=== PATIENT | female | born 1960 | race Caucasian/White ===

== ENCOUNTER → 2017-02-05 | Outpatient (CLI) | payer OTHER ==
[~2017-02-05] MED LIST: ABILIFY5 MG PO; ACETAMINOPHEN PO; ACETAMINOPHEN1 EAC1 PO; ACYCLOVIR200 MG PO; ADDERALL XR 3030 M2 PO; ADDERALLXR PO; ALDACTONE25 MG PO; ARICEPT PO; ASPIR-TRIN325 MG PO; ASPIRIN ENTERI325 M1 PO; ATIVAN0.5 MG PO; B COMPLEX1 TAB PO; B6100 MG PO; BAYER ASPIRIN325 M1 PO; BUMEX2 MG PO; CALCIUM + D 6001 TA1 PO; CALCIUM1 TAB.CHEW PO; CALCIUM500 MG PO; CARVEDILOL12.5 MG PO; CARVEDILOL25 MG PO; CELEBREX PO; CLARITHROMYCIN500 MG; CLARITIN10 M2 PO; COATED ASPIRIN325 M1 PO; COREG3.125 MG PO; COZAAR25 MG PO; CYMBALTA PO; CYMBALTA30 MG PO; EFFIENT10 MG PO; ERY-TAB333 M1 PO; FISH OIL300 MG PO; IMDUR-ER30 M1 PO; IMDUR-ER60 MG PO; K-DUR20 ME1 PO; LANTUS100 U/M1 SQ; LANTUS100 U/ML SUBQ; LASIX PO; LASIX20 MG PO; LEVOTHROID50 MCG PO; LEVOTHYROXINE50 MCG PO; LEXAPRO20 MG PO; MELATONIN10 M2 PO; METANX CAPSULE1 EACH PO; METANX TABLET1 TA1 PO; METOCLOPRAMIDE H5 MG PO; MIRALAX17 GM PO; MULTIPLE VITAMI1 T11 PO; MULTIVITAMIN PO; MULTIVITAMIN1 UDCAP PO; NAMENDA XR21 MG PO; NAMENDA XR28 MG PO; NEXIUM PO; NOVOLOG100 U/M1 SQ; NOVOLOG100 U/M2 SQ; NOVOLOG100 U/ML; OXYGEN; PANTOPRAZOLE SO40 MG PO; PERCOCET 7.5/321 TAB PO; PLAVIX PO; PRAVACHOL20 MG PO; REGLAN10 MG PO; SEROQUEL PO; SILVADENE TOP; SINGULAIR PO; SYNTHROID25 MCG PO; TYLENOL PO; TYLENOL325 M1 PO; VASOTEC2.5 MG PO; VITAMIN D2000 UNIT PO; VOLTAREN100 GM TP; VYTORIN 10-40 M1 TAB PO; VYTORIN 10-40 T1 TAB PO; ZETIA PO; ZINC CHELATED50 M1 PO; ZINC PICOLINATE PO; ZOVIRAX200 MG PO
[2017-02-05 11:39] LABS: BASOPHIL# 0.1 X10e3 (0-0.3); BASOPHIL% 0.9 % (0-2.5); EOSINOPHIL% 0.4 % (0.0-7.0); HEMATOCRIT 42.4 % (35.0-45.0); HEMOGLOBIN 13.8 gm/dL (12.0-16.0); LYMPHOCYTE# 1.5 X10e3 (1.0-3.5); LYMPHOCYTE% 14.5 % (17.0-45.0); MEAN CELL VOLUME 96.8 FL (83-96); MEAN CORPUSCULAR HEMOGLOBIN 31.4 PG (28-34); MEAN CORPUSCULAR HGB CONC 32.4 g/dL (30-36); MEAN PLATELET VOLUME 9.2 FL (6.5-11.5); MONOCYTE# 0.3 X10e3 (0-1.0); MONOCYTE% 3.3 % (3.0-12.0); NEUTROPHIL# 8.5 X10e3 (1.5-7.1); NEUTROPHIL% 80.9 % (40-75); PLATELET COUNT 257 X10e3 (140-420); RED BLOOD COUNT 4.38 X10e (3.90-5.30); RED CELL DISTRIBUTION WIDTH 13.2 % (11.0-15.5); WHITE BLOOD COUNT 10.5 X10e3 (4.0-10.5)
[2017-02-05 11:46] LABS: DIFF IND NO; URINE APPEARANCE CLEAR; URINE BILIRUBIN NEG (NEG); URINE BLOOD TRACE (NEG); URINE COLOR YELLOW; URINE GLUCOSE >1000 MG/DL (NEG); URINE KETONE 1+ (NEG); URINE LEUKOCYTE ESTERASE 1+ (NEG); URINE NITRATE NEG (NEG); URINE PH 6.5 (5-8); URINE PROTEIN NEG (NEG); URINE SPECIFIC GRAVITY 1.028 (1.003-1.035)
[2017-02-05 11:47] LABS: URINE BACTERIA AUWI NEG (NEGATIVE); URINE SQUAMOUS EPITHELIAL CELL OCC /[HPF]
[2017-02-05 11:53] LABS: URINE SOURCE CLEAN CATCH
[2017-02-05 12:21] LABS: CREATININE,RANDOM URINE 133 mg/dL; TOTAL PROTEIN,RANDOM URINE 16 mg/dl (<10)
[2017-02-05 12:32] LABS: ALBUMIN SERUM 3.8 g/dL (3.5-5.0); BILIRUBIN,TOTAL 0.8 mg/dL (0.2-2.0); CALCIUM SERUM 9.6 mg/dL (8.4-10.2); CREATININE SERUM 1.3 mg/dL (0.6-1.4); GLOM FILT RATE Estimated 45.8 mL/min (>60); POTASSIUM 5.2 mmol/L (3.5-5.1); PROTEIN TOTAL SERUM 6.6 g/dL (6.0-8.3)
== END | disposition home or self-care (01) ==
LOC: CLAB 10:56
PROVIDERS: Internal Medicine Nephrology
DX: N18.3 Chronic kidney disease, stage 3 (moderate) (principal)
CPT/HCPCS: 36415; 80053; 81003; 82570; 84156; 85025

== ENCOUNTER 2017-03-04 22:34 | Emergency (ER) | payer OTHER ==
--- NOTE | ~2017-03-04 | EKG ---
PATIENT: VONDA ROBLEDO UNIT #: [id number] Ventricular Rate: 90 BPM Atrial Rate: 90 BPM P-R Interval: 138 ms QRS Duration: 108 ms Q-T Interval: 422 ms QTC Calculation(Bezet): 516 ms P [place]: 43 degrees Calculated R [place]: 46 degrees Calculated T [place]: 96 degrees Diagnosis Line: Normal sinus rhythm Diagnosis Line: Low voltage QRS Diagnosis Line: Septal infarct (cited on or before 04-MAR-2017) Diagnosis Line: Abnormal ECG Diagnosis Line: When compared with ECG of 18-OCT-2016 19:11, Diagnosis Line: Premature supraventricular complexes are no longer Diagnosis Line: Present Diagnosis Line: QT has lengthened Diagnosis Line: Confirmed by JEFF DAMON MD ([id number]) on Diagnosis Line: 03/06/2017 4:02:01 PM INTERPRETING MD: NELSON PERAZA
--- NOTE | ~2017-03-04 | CR72 ---
[facility] A Service of [facility] RADIOLOGY TEXT RESULTS PATIENT: VONDA ROBLEDO LOCATION: [facility] : 60 UNIT #: [id number] AGE: [address]: Darnell Haile MD SEX: F ORDER DR: [id number] [facility] [address] [place], [place] [address] [id number] E MR#: [id number] #: [id number] NAME: VONDA ROBLEDO : 1960 SEX: F STUDY DATE/TIME: 03/05/2017 0:20 UNIT: [facility] ROOM: STUDY DESCRIPTION: CR Chest Single View Portable Attending Physician: Darnell Haile M.D. Ordering Physician: Ed Doctor [id number] [facility] Primary Care Physician: Johanny Rodríguez M.D. MEDICAL IMAGING REPORT This report is preliminary unless electronic signature is present EXAM Portable chest INDICATION Chest pain, shortness of air for 2 days. COMPARISON 10/19/2016. FINDINGS A portable view of the chest was obtained. The heart size and vascularity are normal. The lungs are clear. The bones are unremarkable. A dual-lead pacemaker is present. IMPRESSION No active disease. Dictated by... Donovan Angeles M.D. THIS IS AN ELECTRONICALLY VERIFIED REPORT Donovan Angeles M.D. at 03/05/2017 1:35 PM JOSE JUAN/marlyn TD: 03/05/2017 12:54 JOB #: [id number] MEDICAL IMAGING REPORT Page 1 of 1 COPY
[~2017-03-04 22:34] MED LIST changes: -ACETAMINOPHEN1 EAC1 PO; -CLARITHROMYCIN500 MG; -MELATONIN10 M2 PO; -OXYGEN; -SILVADENE TOP
[2017-03-05 01:29] LABS: BASOPHIL# 0.1 X10e3 (0-0.3); BASOPHIL% 0.5 % (0-2.5); DIFF IND YES; EOSINOPHIL% 0.4 % (0.0-7.0); HEMATOCRIT 43.4 % (35.0-45.0); HEMOGLOBIN 13.8 gm/dL (12.0-16.0); LYMPHOCYTE# 5.3 X10e3 (1.0-3.5); LYMPHOCYTE% 47.1 % (17.0-45.0); MEAN CELL VOLUME 98.1 FL (83-96); MEAN CORPUSCULAR HEMOGLOBIN 31.3 PG (28-34); MEAN CORPUSCULAR HGB CONC 31.9 g/dL (30-36); MEAN PLATELET VOLUME 9.2 FL (6.5-11.5); MONOCYTE# 0.6 X10e3 (0-1.0); MONOCYTE% 5.2 % (3.0-12.0); NEUTROPHIL# 5.3 X10e3 (1.5-7.1); NEUTROPHIL% 46.8 % (40-75); PLATELET COUNT 250 X10e3 (140-420); RED BLOOD COUNT 4.42 X10e (3.90-5.30); WHITE BLOOD COUNT 11.3 X10e3 (4.0-10.5)
[2017-03-05 01:38] LABS: POC - CKMB 3.4 ng/mL (0.0-7.9); POC - TROPONIN <0.05 ng/mL (<=0.05)
[2017-03-05 01:46] LABS: ALBUMIN SERUM 3.9 g/dL (3.5-5.0); BILIRUBIN, DIRECT 0.1 mg/dL (0.0-0.2); BILIRUBIN,INDIRECT 0.5 mg/dL (0.0-0.9); BILIRUBIN,TOTAL 0.6 mg/dL (0.2-2.0); BUN/CREATININE RATIO 11.66; CALCIUM SERUM 9.4 mg/dL (8.4-10.2); CREATININE SERUM 1.2 mg/dL (0.6-1.4); GLOM FILT RATE Estimated 50.5 mL/min (>60); PROTEIN TOTAL SERUM 7.3 g/dL (6.0-8.3)
[2017-03-05 02:35] LABS: POC - CKMB 2.2 ng/mL (0.0-7.9); POC - TROPONIN <0.05 ng/mL (<=0.05)
[2017-03-05 02:46] LABS: PLATELET ESTIMATE NORMAL (NORMAL); RBC NORMAL YES
== END 2017-03-05 03:21 | disposition home or self-care (01) ==
LOC: CED 22:34
PROVIDERS: Emergency Medicine
DX: F41.9 Anxiety disorder, unspecified (principal); Z71.1 Person with feared health complaint in whom no diagnosis is made; E11.9 Type 2 diabetes mellitus without complications; Z86.73 Personal history of transient ischemic attack (TIA), and cerebral infarction without residual deficits; Z98.890 Other specified postprocedural states; Z95.0 Presence of cardiac pacemaker; Z88.8 Allergy status to other drugs, medicaments and biological substances; Z79.899 Other long term (current) drug therapy; Z79.4 Long term (current) use of insulin; Z79.82 Long term (current) use of aspirin
CPT/HCPCS: 36415; 71010; 80048; 80076; 82553; 84484; 85025; 93005; 99285

== ENCOUNTER 2017-05-05 15:49 | Inpatient (IN) | payer OTHER ==
[~2017-05-05] VITALS: Ht 157.5 cm; Wt 52.0 kg
--- NOTE | ~2017-05-05 | DS ---
Unit #: [id number] #: [id number] Patient: VONDA ROBLEDO [id number] [address] [address] [id number] I MR#: [id number] NAME: VONDA ROBLEDO ROOM: 327 Age: 57 Sex: F Admission Date: 05/05/2017 : 1960 Discharge Date: 05/09/2017 Attending Physician: Adelina Cross M.D. Primary Care Physician: Johanny Rodríguez M.D. DISCHARGE SUMMARY ADMISSION DIAGNOSES 1. Left upper extremity, mainly hand, swelling. 2. Rhabdomyolysis. 3. Acute kidney injury of chronic kidney disease. 4. Hyperglycemia. 5. Congestive heart failure. 6. History of coronary artery disease. 7. Hypertension. 8. Dyslipidemia. 9. Obstructive sleep apnea. 10. History of vascular dementia and blindness. 11. Hypothyroidism. DISCHARGE DIAGNOSES Same. CONSULTS DURING THIS HOSPITAL STAY 1. Orthopedic Surgery - Dr. Maher. 2. Dr. Brooks - Nephrology. LABS, DIAGNOSTICS AND PROCEDURES DURING THIS HOSPITAL STAY Hand x-ray on admission - no displaced fractures. No indication from traumatic joint malalignment. Soft tissue swelling. There is no soft tissue defect, subcutaneous air or radiodense foreign body. Forearm x-ray unremarkable. CT of the head without contrast - advanced chronic microvascular disease changes with chronic moderate central lobe infarct. No acute findings or significant change compared to September 2016 exam. HISTORY OF PRESENT HOSPITAL STAY Please refer to H and P done by my colleague, Dr. Cross, for initial presentation on this female. ACTIVE PROBLEMS AND DIAGNOSES 1. Acute kidney injury on chronic kidney disease most likely secondary to rhabdomyolysis. Nephrotoxic meds have been held, status post evaluation per Dr. Brooks. She was hydrated. Her CK level started trending down on admission. It was 3500. Again, it progressively had been trending down. Last one on May 09 is 1600. Patient is status post again evaluation by nephrology and from nephrology standpoint she can be discharged home with outpatient followup. 2. Rhabdomyolysis as above. Unit #: [id number] #: [id number] Patient: VONDA ROBLEDO 3. Left upper extremity/left hand swelling, status post evaluation per orthopedic surgery who initially discussed the case with the hand surgery from [facility]. Compartment syndrome has been ruled out. She had superficial blisters which was treated with Silvadene. Continue daily dressing with Silvadene at home. Patient is being followed by extended home nursing care. 4. History of coronary artery disease, continue home medications. 5. History of CHF. Holding diuretics per nephrology recommendations for now. Could be gradually introduced by primary care with monitoring of her renal function. 6. History of vascular dementia. Continue home medications. 7. History of hypertension. Holding Cozaar for now. 8. History of dyslipidemia, continue Pravachol. 9. History of diabetes. Continue home insulin regimen with sliding scale and Lantus. 10. History of hypothyroidism, continue levothyroxine. DISCHARGE MEDICATIONS 1. Tylenol p.r.n. 2. Cymbalta 90 mg daily. 3. Claritin 10 mg daily. 4. Abilify 5 mg q. a.m. 5. Ativan 0.5 mg t.i.d. p.r.n. for agitation. 6. Coreg 3.125 mg b.i.d. 7. MiraLAX 17 g p.o. daily. 8. Namenda 28 mg daily. 9. Aricept 10 mg daily. 10. Home O2. 11. Pravachol 20 mg p.o. q. h.s. 12. Sliding scale insulin. 13. Lantus 25 units subcu daily. 14. Silver sulfadiazine topically b.i.d. 15. Melatonin 10 mg at bedtime. 16. Aspirin 325 daily. 17. Topical Voltaren p.r.n. Actually, I will hold that for now secondary to renal function even though it did currently resolve. 18. Instead, continue Percocet 7.5/325, 1 tablet p.o. b.i.d. p.r.n. for pain. Script had been given. 19. Effient 10 mg daily. 20. Protonix 40 mg daily. 21. Levothyroxine 15 mcg daily. 22. Imdur 30 mg daily. 23. Again, please note that Aldactone and Bumex had been on hold secondary to renal function. Again, it could be reintroduced slowly monitoring her renal function but for now will hold secondary to nephrology recommendations. 24. Also holding Cozaar 12.5 mg p.o. daily which also could be reintroduced as an outpatient. DISPOSITION Patient is being discharged home. Follow up with Dr. Vang [facility]. Dictated by... Unit #: [id number] #: [id number] Patient: VONDA ROBLEDO M.D. OC/df TD: 05/10/2017 06:52 JOB #: [id number] DISCHARGE SUMMARY Page 1 of 1 X Adolfo Pearson MD X DISCHARGE SUMMARY
--- NOTE | ~2017-05-05 | CT71 ---
[facility] A Service of [facility] RADIOLOGY TEXT RESULTS PATIENT: VONDA ROBLEDO LOCATION: [facility] 327-01 : 60 UNIT #: [id number] AGE: [address]: Adelina Cross MD SEX: F ORDER DR: [id number] [facility] [address] [place], [place] [address] [id number] I MR#: [id number] Acc #: [id number] NAME: VONDA ROBLEDO : 1960 SEX: F STUDY DATE/TIME: 05/05/2017 18:29 UNIT: A PCU ROOM: [facility] STUDY DESCRIPTION: CT Head Wo Contrast Attending Physician: Adelina Cross M.D. Ordering Physician: Justin Mario M.D. Primary Care Physician: Johanny Rodríguez M.D. MEDICAL IMAGING REPORT This report is preliminary unless electronic signature is present EXAM Noncontrast CT head. DATE 05/05/2017 HISTORY Lethargic today. Possible injury to the left side of forehead with bruising. Patient does not recall any trauma. Additional history of hypertension, cardiac disease, congestive heart failure, diabetes and dementia. COMPARISON Noncontrast CT head 10/18/2016. TECHNIQUE This CT exam was performed with one or more of the following radiation dose reduction techniques: automatic control, adjustment of mA and/or kV according to patient size, and iterative reconstruction. FINDINGS Encephalomalacia within the right occipital lobe consistent with remote infarct. Fairly extensive hypodensities in the deep white matter of the brain consistent with the appearance of chronic microvascular disease, demonstrated within the high bilateral posterior frontal and parietal lobes near the vertex, right greater than left. There is moderate generalized atrophy with compensatory prominence of the ventricles and extraaxial spaces. Chronic-appearing lacunar infarct within the left basal ganglia. No intracranial hemorrhage, mass lesion, mass effect, or midline shift is seen. Dense intracranial carotid artery and vertebral artery calcifications are present. No calvarial abnormalities identified. Paranasal sinuses and mastoid air cells are clear. [facility] A Service of [facility] RADIOLOGY TEXT RESULTS PATIENT: VONDA ROBLEDO LOCATION: [facility] 327-01 : [birth year] UNIT #: [id number] AGE: [address]: Adelina Cross MD SEX: F ORDER DR: IMPRESSION 1. Moderately advanced chronic microvascular disease changes in the white matter with chronic moderate central lobe infarct. Moderate generalized atrophy with compensatory prominence of the ventricles. 2. No acute findings or significant change compared to 10/18/2016. Dictated by... Marjorie Goldman M.D. THIS IS AN ELECTRONICALLY VERIFIED REPORT Marjorie Goldman M.D. at 05/07/2017 6:16 AM CHERYL/sindhu TD: 05/07/2017 02:18 JOB #: [id number] MEDICAL IMAGING REPORT Page 1 of 1 COPY
--- NOTE | ~2017-05-05 | CR141 ---
[facility] A Service of [facility] RADIOLOGY TEXT RESULTS PATIENT: VONDA ROBLEDO LOCATION: [facility] 327-01 : 60 UNIT #: [id number] AGE: [address]: Adelina Cross MD SEX: F ORDER DR: [id number] [facility] [address] [place], [place] [address] [id number] I MR#: [id number] Acc #: [id number] NAME: VONDA ROBLEDO : 1960 SEX: F STUDY DATE/TIME: 05/05/2017 18:06 UNIT: [address] ROOM: [facility] STUDY DESCRIPTION: CR Hand Min 3 Views Lt Attending Physician: Adelina Cross M.D. Ordering Physician: Justin Mario M.D. Primary Care Physician: Johanny Rodríguez M.D. MEDICAL IMAGING REPORT This report is preliminary unless electronic signature is present EXAM Left hand series, 05/05/17. HISTORY Pain. Pain, swelling, dementia began this morning. No trauma. FINDINGS AP, lateral, and oblique radiographs of the left hand are presented. Study is limited by digital flexion on all views and digital overlap on the oblique and lateral views. No displaced fracture is seen. There is no indication of traumatic joint malalignment. There is suggestion of soft tissue swelling circumferentially around the wrist with definite soft tissue swelling, dorsal aspect of the hand, and probable generalized soft tissue swelling of the digits as well. Please correlate with exam. There is no soft tissue defect, subcutaneous air, or radiodense foreign body. There is extensive vascular calcification. Dictated by... Jamarcus Duncan M.D. THIS IS AN ELECTRONICALLY VERIFIED REPORT Jamarcus Duncan M.D. at 05/08/2017 4:59 PM Diane TD: 05/07/2017 05:43 JOB #: [id number] MEDICAL IMAGING REPORT Page 1 of 1 COPY
--- NOTE | ~2017-05-05 | CO ---
Unit #: [id number] #: [id number] Patient: VONDA ROBLEDO [id number] [address] [place], [place] [address] [id number] I MR#: [id number] NAME: VONDA ROBLEDO ROOM: 327 Age: 57 Sex: F Admission Date: 05/05/2017 : 1960 Attending Physician: Adelina Cross M.D. Primary Care Physician: Johanny Rodríguez M.D. Consultation Date: 05/05/2017 CONSULTATION REPORT SERVICE Orthopedic Surgery. CONSULT REQUESTING SERVICE Hospitalist. CHIEF COMPLAINT Left hand swelling and blistering. HISTORY OF PRESENT ILLNESS The patient is a 47-year-old female with multiple medical comorbidities including vascular dementia secondary to severe CAD and PVD as a result of longstanding type 1 diabetes mellitus. The patient lives with her family and has noted that this morning she had significant swelling as well as blistering around her fingers on the left arm so she was brought to the emergency department for evaluation. The patient's family denies any known trauma or prolonged periods of sleeping. They note that she slept approximately six hours the morning that she was found to have this swelling. Nothing like this has ever happened before. PAST MEDICAL HISTORY Significant for type 1 diabetes mellitus, CAD, PVD, CHF, prior AR. PAST SURGICAL HISTORY Includes coronary artery stenting as well as pacemaker defibrillator implantation. MEDICATIONS See MAR for medication list. SOCIAL HISTORY The patient lives with her and her daughter, also helps care for her. They deny alcohol or tobacco use. FAMILY HISTORY Noncontributory. DIAGNOSTIC STUDIES IMAGING RESULTS: AP and lateral of the forearm as well as AP and lateral of the hand and wrist demonstrates no obvious bony abnormalities. There is significant soft tissue swelling noted about the hand. Of note, the patient also has severe vascular calcifications down the entire forearm and into the hand. Unit #: [id number] #: [id number] Patient: VONDA ROBLEDO LABORATORY RESULTS: CPK level is greater than 3000. PHYSICAL EXAMINATION GENERAL: On exam, the patient is alert, but is somnolent and difficult to interact with. MUSCULOSKELETAL: Examination of the left hand demonstrates significant swelling with some pallor of the hand. The finger nails are slightly dusky; however, capillary refill is less than 3 seconds in all digits. There are multiple blisters over the hand mostly centered about the MCP joint on nearly all the fingers. The blisters are serous in nature. Several of them along the ulnar border of the hand have already been unroofed. The hand is swollen; however, it is no longer tense as it was per report when the patient first came to the emergency department. The patient still has palpable radial pulse. Sensation is intact grossly in median, radial, and ulnar distributions; however, further neurologic exam is very difficult secondary to the patient's mental status and ability to follow commands. Overall, the whole hand is still warm. ASSESSMENT This is a 47-year-old female with swelling and blistering secondary to the swelling as well as mild rhabdomyolysis in the setting of unknown trauma or injury. PLAN 1. At this point, it does not appear to represent a compartment syndrome especially as the patient's pain and swelling have improved significantly with elevation. 2. I did have a lengthy discussion with the patient's daughter about expectations and tailoring the treatment to the patient's current medical status. The patient's daughter did state a preference to avoid any significantly invasive treatment at this time as she feels it would not be beneficial to her mother. I did discuss that if this progressed and we felt if there was compartment syndrome, then multiple fasciotomies would be required and that the patient is on two anti-platelet agents, she likely would bleed significantly and we would be unable to close the wound likely necessitating skin grafts. 3. I did discuss this case briefly with the hand surgeon on-call at [facility] and he also felt this likely did not represent compartment syndrome and given her significant vascular disease should there be any vascular compromise that revascularization likely would not be possible secondary to the status of her arteries. 4. Thus at this point, the plan is to continue with elevation and close monitoring. The patient will be admitted to the hospital and treated for her mild rhabdomyolysis. 5. Plan to treat the blisters as superficial ramírez with Silvadene ointment b.i.d. on the unroofed ulcers. No need to unroof the other ulcers at this time. We will continue to follow this patient while she is in-house. 6. Again, expectations were set with the family and the patient's daughter does understand that there is likely some muscle damage in the left arm or hand, which is what is causing the rhabdomyolysis and she understands that her mother may lose some function of the hand, however, she feels that is an acceptable trade off to avoid invasive treatment at this time. Dictated by... Unit #: [id number] #: [id number] Patient: VONDA ROBLEDO M.D. TF/louann TD: 05/06/2017 15:24 JOB #: [id number] CONSULTATION REPORT Page 1 of 1 X X CONSULTATION REPORT
--- NOTE | ~2017-05-05 | CO ---
Unit #: [id number] #: [id number] Patient: VONDA ROBLEDO [id number] [address] [place], [place] [address] [id number] I MR#: [id number] NAME: VONDA ROBLEDO ROOM: 327 Age: 57 Sex: F Admission Date: 05/05/2017 : 1960 Attending Physician: Adelina Cross M.D. Primary Care Physician: Johanny Rodríguez M.D. Consultation Date: 05/07/2017 CONSULTATION REPORT REASON FOR CONSULTATION Chronic kidney disease stage 3. Thank you very much for this consultation. HISTORY OF PRESENT ILLNESS The patient is a 57-year-old white female with history of vascular dementia as well as CKD stage 3, who is followed by my partner Dr. Javier. Her baseline creatinine is around 1.3, which is what it was when she saw him last in January. She has a history of diabetes, hypertension, and congestive heart failure. She is currently managed on losartan, Bumex, and Aldactone as an outpatient. She presented to the hospital with left hand swelling and blistering. She does have severe dementia. She was unable to provide much review of systems. Therefore, it is unclear as to if there was any trauma, although that does not appear to have been. She was admitted and seen by Ortho. She did have an elevated CK level, but no evidence of compartment syndrome. She was started on IV fluids, which have been discontinued. She has been otherwise stable. PAST MEDICAL HISTORY Significant for CKD stage 3, hypertension, congestive heart failure, vascular dementia, coronary artery disease, hyperlipidemia, hypothyroidism, obstructive sleep apnea. MEDICATIONS As per the med rec. FAMILY HISTORY Noncontributory. SOCIAL HISTORY She denies any tobacco, alcohol, or illicits per the chart. REVIEW OF SYSTEMS Unobtainable. PHYSICAL EXAMINATION VITAL SIGNS: Her blood pressure is 90s to 140s/40s to 50s, heart rate 70s to 80s, respirations 16 to 18, T-max of 99. GENERAL: She is in no acute distress. HEAD: Normocephalic, atraumatic. ENT: Pupils equal, round, reactive to light. Oropharynx is clear. NECK: Supple. No JVD. LUNGS: Clear to auscultation bilaterally. Unit #: [id number] #: [id number] Patient: VONDA ROBLEDO ABDOMEN: Soft and nontender. Positive bowel sounds. EXTREMITIES: She has a left upper extremity wrapped with some edema. DIAGNOSTIC STUDIES LABORATORY RESULTS: From yesterday, sodium 133, potassium 4.8, chloride 98, bicarb 27, BUN 20, creatinine 1.2, glucose 337, calcium 8.7. CK level of 2368. White count 11.9, hemoglobin 11.4, platelets 196. Urinalysis showed 1+ blood with no rbc's, no protein, greater than 1000 glucose. ASSESSMENT 1. Chronic kidney disease stage 3. Creatinine is currently at baseline range. 2. Elevated CPK. The patient does not have any acute kidney injury at the current time. Her CK level is coming down with IV fluids. At this point, she does have good p.o. intake and her IV fluids have been stopped by primary. 3. Left hand swelling. She has been seen by Ortho. There is no evidence of compartment syndrome. Continue with elevation and local wound care for the blistering. 4. Hyponatremia. This is mild and hypervolemic and likely secondary to her congestive heart failure and some fluid overload. Continue current diuretics. 5. Congestive heart failure as above. 6. Hypertension. Blood pressure stable. PLAN The patient is stable from a renal standpoint, agree with holding IV fluids today. Repeat CPK level in the morning and BMP, but she should otherwise be okay for discharge at that point. I would recommend discontinuing the Webster catheter upon discharge as it is a risk of infection. We will have further recommendations as hospital course progresses. Thank you very much for this consultation. Dictated by... Ming Brooks M.D. JAMES/louann TD: 05/07/2017 16:18 JOB #: [id number] CONSULTATION REPORT Page 1 of 1 X Ming Brooks MD X CONSULTATION REPORT
--- NOTE | ~2017-05-05 | HP ---
Unit #: [id number] #: [id number] Patient: VONDA ROBLEDO [id number] [address] [address] [id number] I MR#: [id number] NAME: VONDA ROBLEDO ROOM: 327 Age: 57 Sex: F Admission Date: 05/05/2017 : 1960 Attending Physician: Adelina Cross M.D. Primary Care Physician: Johanny Rodríguez M.D. HISTORY AND PHYSICAL CHIEF COMPLAINT Left upper extremity swelling. HISTORY OF PRESENTING ILLNESS Ms. Pimentel is a 57-year-old female who has multiple medical problems. She has extensive past medical history and is completely dependent for activities of daily living. She is blind in both eyes and has an extensive history of coronary artery disease, ischemic cardiomyopathy, hypertension, hyperlipidemia, diabetes mellitus, obstructive sleep apnea, hypothyroidism, vascular dementia, and lives at home with her . Patient has a caregiver from [facility], and her mother takes care of her from 4:00 until her comes home. Patient was noted to have yesterday left upper extremity swelling and some blister. There is no history of trauma as far as they remember. Patient is not able to communicate well and was admitted to make sure there is no compartment syndrome. Patient has already been seen by surgeon, and as per Surgery, it does not look like any compartment syndrome. Swelling is improving, and family is not interested in any aggressive treatment. Patient is evaluated in room 326. Patient seems to be resting very well and does not seem to be in any sort of distress. PAST MEDICAL HISTORY As above. 1. Coronary artery disease with multiple angioplasties and stent placement. 2. Ischemic cardiomyopathy with ejection fraction of 25%. 3. Chronic systolic/diastolic heart failure. 4. Hypertension. 5. Hyperlipidemia. 6. Diabetes mellitus type 2. 7. Obstructive sleep apnea. 8. Hypothyroidism. 9. Gastroparesis. 10. GERD. 11. Vascular dementia. 12. Blindness. PAST SURGICAL HISTORY 1. AICD implantation. 2. Multiple angioplasties. 3. Cornea replacement bilateral. 4. Hand surgery. 5. Right hemicolectomy. 6. Carpal tunnel release. Unit #: [id number] #: [id number] Patient: VONDA ROBLEDO SOCIAL HISTORY Patient is and lives with her . No history of smoking, alcohol, or drug abuse. Most of the history has been taken from patient's mother who is at the bedside. FAMILY HISTORY Negative for coronary artery disease. There is a history of hepatitis C and thyroid problem in father. ALLERGIES Gabapentin and Lyrica. HOME MEDICATIONS 1. Pantoprazole 40 mg daily. 2. Coreg 3.125 mg twice daily. 3. Levothyroxine 50 mcg daily. 4. Imdur ER 30 mg daily. 5. Effient 10 mg daily. 6. Bumex 1 mg Sunday/Sunday/Sunday. 7. Aricept 10 mg daily. 8. Cozaar 12.5 mg daily. 9. Lantus 25 units subcutaneous daily. 10. NovoLog sliding scale. 11. Percocet 7.5/325 at 1 tablet twice daily p.r.n. 12. Voltaren 100 mg topically on feet p.r.n. 13. Tylenol 650 at 4 times daily p.r.n. 14. MiraLAX 17 g daily. 15. Abilify 5 mg daily. 16. Pravachol 20 mg daily. 17. Namenda 28 mg daily. 18. Aldactone 25 mg daily. 19. Cymbalta 90 mg daily. 20. Ativan 0.5 mg 3 times daily p.r.n. for agitation. REVIEW OF SYSTEMS As per History of Presenting Illness. PHYSICAL EXAMINATION GENERAL: Patient is lying in bed in no respiratory distress. VITAL SIGNS: Blood pressure is 122/54, respiratory rate 18, pulse 86, temperature 98, oxygen saturation is 100%. HEENT: Head is normocephalic. Patient is blind. NECK: Supple. CHEST: Fair air entry. No additional sounds. Decreased at the bases. CARDIOVASCULAR: S1 and S2 positive. Regular rhythm. No murmurs. No rubs. No clicks. AICD in place. ABDOMEN: Soft, nontender. EXTREMITIES: No edema. Pulses are palpable. SKIN: Warm and dry. DIAGNOSTIC STUDIES LABORATORY: WBC 13.8, hemoglobin 12.4, hematocrit 37.7, and platelet count of 234,000. Sodium 135, potassium 4.8, chloride 99, BUN 21, creatinine 1.4, glucose 401. CPK 3521. Urinalysis shows more than 1000 glucose, blood 1+. Glucose this morning 314. ASSESSMENT Unit #: [id number] #: [id number] Patient: VONDA ROBLEDO Patient is being admitted to telemetry unit with the diagnoses of: 1. Left upper extremity and hand swelling. 2. No compartment syndrome per Surgery at this time. 3. Rhabdomyolysis. 4. Chronic kidney disease. 5. Hyperglycemia with a history of diabetes mellitus. 6. Congestive heart failure with ejection fraction of 25%. 7. Coronary artery disease. 8. Hypertension. 9. Hyperlipidemia. 10. Obstructive sleep apnea. 11. Hypothyroidism. 12. Vascular dementia. 13. Blindness. PLAN Admit to telemetry unit. Orthopedics has been consulted. No compartment syndrome. IV fluids are being given. Slow hydration for rhabdomyolysis. Labs will be repeated. Dr. Javier will be consulted. Home medications have been reviewed and adjusted. The plan of care has been discussed with patient's mother at length. Please refer to progress note for further orders. Dictated by Corinna Freeman TD: 05/06/2017 17:33 JOB #: [id number] HISTORY AND PHYSICAL Page 1 of 1 X Adelina Cross MD X HISTORY AND PHYSICAL
--- NOTE | ~2017-05-05 | EKG ---
PATIENT: VONDA ROBLEDO UNIT #: [id number] Ventricular Rate: 96 BPM Atrial Rate: 96 BPM P-R Interval: 146 ms QRS Duration: 90 ms Q-T Interval: 406 ms QTC Calculation(Bezet): 512 ms P [place]: 67 degrees Calculated R [place]: 60 degrees Calculated T [place]: 106 degrees Diagnosis Line: Sinus rhythm with Premature atrial complexes Diagnosis Line: Septal infarct (cited on or before 04-MAR-2017) Diagnosis Line: Baseline wander Diagnosis Line: Prolonged QT Diagnosis Line: Abnormal ECG Diagnosis Line: When compared with ECG of 04-MAR-2017 22:41, Diagnosis Line: Premature atrial complexes are now Present Diagnosis Line: Confirmed by CHANTELLE ATKINSON MD ([id number]) on 05/06/2017 Diagnosis Line: 11:06:13 PM INTERPRETING MD: DEMETRIO PERAZA
--- NOTE | ~2017-05-05 | CR132 ---
[facility] A Service of [facility] & [facility] RADIOLOGY TEXT RESULTS PATIENT: VONDA ROBLEDO LOCATION: [facility] 327-01 : [birth year] UNIT #: [id number] AGE: [address]: Adelina Cross MD SEX: F ORDER DR: [id number] [facility] [address] [facility]. [place], [place] [address] [id number] I MR#: [id number] Acc #: [id number] NAME: VONDA ROBLEDO : 1960 SEX: F STUDY DATE/TIME: 05/05/2017 18:08 UNIT: [address] ROOM: [facility] STUDY DESCRIPTION: CR Forearm 2 View Lt Attending Physician: Adelina Cross M.D. Ordering Physician: Justin Mario M.D. Primary Care Physician: Johanny Rodríguez M.D. MEDICAL IMAGING REPORT This report is preliminary unless electronic signature is present EXAM 2 views of the left forearm. DATE 05/05/2017 HISTORY 57-year-old female with left forearm and hand pain and swelling this morning. No trauma. FINDINGS No fracture or joint dislocation is seen. Dense calcific atherosclerotic changes are present. Mild generalized osteopenia. No significant osteoarthritic changes are identified. IMPRESSION 1. No acute left forearm 2. Mild osteopenia. 3. Calcific atherosclerosis. Dictated by... Marjorie Goldman M.D. THIS IS AN ELECTRONICALLY VERIFIED REPORT Marjorie Goldman M.D. at 05/07/2017 6:16 AM CHERYL/sindhu TD: 05/07/2017 01:58 JOB #: [id number] MEDICAL IMAGING REPORT Page 1 of 1 COPY
[2017-05-05 18:15] LABS: BASOPHIL# 0.1 X10e3 (0-0.3); BASOPHIL% 0.7 % (0-2.5); EOSINOPHIL% 0.2 % (0.0-7.0); HEMATOCRIT 37.7 % (35.0-45.0); HEMOGLOBIN 12.4 gm/dL (12.0-16.0); LYMPHOCYTE# 2.8 X10e3 (1.0-3.5); LYMPHOCYTE% 20.5 % (17.0-45.0); MEAN CELL VOLUME 97.2 FL (83-96); MEAN CORPUSCULAR HEMOGLOBIN 31.9 PG (28-34); MEAN CORPUSCULAR HGB CONC 32.9 g/dL (30-36); MEAN PLATELET VOLUME 9.4 FL (6.5-11.5); MONOCYTE# 0.9 X10e3 (0-1.0); MONOCYTE% 6.4 % (3.0-12.0); NEUTROPHIL# 9.9 X10e3 (1.5-7.1); NEUTROPHIL% 72.2 % (40-75); PLATELET COUNT 234 X10e3 (140-420); RED BLOOD COUNT 3.88 X10e (3.90-5.30); RED CELL DISTRIBUTION WIDTH 13.4 % (11.0-15.5); WHITE BLOOD COUNT 13.8 X10e3 (4.0-10.5)
[2017-05-05 18:23] LABS: DIFF IND NO
[2017-05-05 18:36] LABS: CALCIUM SERUM 9.1 mg/dL (8.4-10.2); CREATININE SERUM 1.4 mg/dL (0.6-1.4); GLOM FILT RATE Estimated 41.6 mL/min (>60); POTASSIUM 4.8 mmol/L (3.5-5.1)
[2017-05-05 20:14] LABS: URINE SOURCE CLEAN CATCH
[2017-05-05 20:24] LABS: URINE APPEARANCE CLEAR; URINE BILIRUBIN NEG (NEG); URINE BLOOD 1+ (NEG); URINE COLOR YELLOW; URINE GLUCOSE >1000 MG/DL (NEG); URINE KETONE 1+ (NEG); URINE LEUKOCYTE ESTERASE NEG (NEG); URINE NITRATE NEG (NEG); URINE PROTEIN NEG (NEG); URINE SPECIFIC GRAVITY 1.037 (1.003-1.035); URINE UROBILINOGEN 0.2 MG/DL (NEG)
[2017-05-05 20:27] LABS: URBCS1 AUWI 0-2 /[HPF] (0-2); URINE BACTERIA AUWI NEG (NEGATIVE); URINE SQUAMOUS EPITHELIAL CELL NONE SEEN /[HPF]; UWBCS1 AUWI 0-2 (0-5)
[2017-05-05 20:39] LABS: CULTURE INDICATED? NO
[2017-05-05] MEDS ORDERED: CLARITHROMYCIN500 MG (21:22)
[2017-05-05] MEDS ORDERED: MELATONIN10 M2 PO (21:23)
[2017-05-05] MEDS ORDERED: OXYGEN (21:23)
[2017-05-05] MEDS ORDERED: ACETAMINOPHEN1 EAC1 PO (21:26)
[2017-05-06 16:01] LABS: BUN/CREATININE RATIO 16.66; CALCIUM SERUM 8.7 mg/dL (8.4-10.2); CREATININE SERUM 1.2 mg/dL (0.6-1.4); GLOM FILT RATE Estimated 50.1 mL/min (>60); POTASSIUM 4.8 mmol/L (3.5-5.1)
[2017-05-06 22:56] LABS: BASOPHIL# 0.2 X10e3 (0-0.3); BASOPHIL% 1.4 % (0-2.5); DIFF IND NO; EOSINOPHIL# 0.1 X10e3 (0-0.7); EOSINOPHIL% 0.7 % (0.0-7.0); HEMOGLOBIN 11.1 gm/dL (12.0-16.0); LYMPHOCYTE% 25.6 % (17.0-45.0); MEAN CELL VOLUME 98.7 FL (83-96); MEAN CORPUSCULAR HEMOGLOBIN 31.3 PG (28-34); MEAN CORPUSCULAR HGB CONC 31.7 g/dL (30-36); MEAN PLATELET VOLUME 9.6 FL (6.5-11.5); MONOCYTE# 0.8 X10e3 (0-1.0); MONOCYTE% 6.7 % (3.0-12.0); NEUTROPHIL# 7.8 X10e3 (1.5-7.1); NEUTROPHIL% 65.6 % (40-75); PLATELET COUNT 205 X10e3 (140-420); RED BLOOD COUNT 3.54 X10e (3.90-5.30); RED CELL DISTRIBUTION WIDTH 13.1 % (11.0-15.5); WHITE BLOOD COUNT 11.9 X10e3 (4.0-10.5)
[2017-05-07 09:17] LABS: BASOPHIL% 0.3 % (0-2.5); EOSINOPHIL# 0.1 X10e3 (0-0.7); EOSINOPHIL% 0.5 % (0.0-7.0); HEMATOCRIT 34.6 % (35.0-45.0); HEMOGLOBIN 11.4 gm/dL (12.0-16.0); LYMPHOCYTE% 16.8 % (17.0-45.0); MEAN CELL VOLUME 97.8 FL (83-96); MEAN CORPUSCULAR HEMOGLOBIN 32.3 PG (28-34); MEAN PLATELET VOLUME 9.5 FL (6.5-11.5); MONOCYTE# 0.8 X10e3 (0-1.0); MONOCYTE% 6.4 % (3.0-12.0); PLATELET COUNT 196 X10e3 (140-420); RED BLOOD COUNT 3.53 X10e (3.90-5.30); WHITE BLOOD COUNT 11.9 X10e3 (4.0-10.5)
[2017-05-07 09:19] LABS: DIFF IND NO
[2017-05-07 09:44] LABS: BUN/CREATININE RATIO 16.25; CALCIUM SERUM 8.6 mg/dL (8.4-10.2); CREATININE SERUM 0.8 mg/dL (0.6-1.4); GLOM FILT RATE Estimated 81.9 mL/min (>60); POTASSIUM 4.2 mmol/L (3.5-5.1)
[2017-05-08 05:54] LABS: GLOM FILT RATE Estimated 62.5 mL/min (>60); POTASSIUM 3.9 mmol/L (3.5-5.1)
[2017-05-09 05:21] LABS: CALCIUM SERUM 8.8 mg/dL (8.4-10.2); CREATININE SERUM 0.8 mg/dL (0.6-1.4); GLOM FILT RATE Estimated 81.9 mL/min (>60); POTASSIUM 4.1 mmol/L (3.5-5.1)
[2017-05-09] MEDS ORDERED: SILVADENE TOP (20:52)
== END 2017-05-09 22:33 | disposition home or self-care (01) | DRG 557 ==
LOC: CFTX 15:49 → CED 15:49 → C3A PCU 21:00 → CEDOF 21:00 → CED 22:44 → C3A PCU 05-06 01:38 → CEDOF 05-06 01:38 → C3A PCU 05-09 22:33
PROVIDERS: Emergency Medicine; Internal Medicine Nephrology; Physician Assistant Medical
PROC: 05HD33Z Insertion of Infusion Device into Right Cephalic Vein, Percutaneous Approach (ICD-10-PCS; principal; 2017-05-08)
DX: M62.82 Rhabdomyolysis (principal); R53.2 Functional quadriplegia; N17.9 Acute kidney failure, unspecified; E10.22 Type 1 diabetes mellitus with diabetic chronic kidney disease; N18.3 Chronic kidney disease, stage 3 (moderate); I13.0 Hypertensive heart and chronic kidney disease with heart failure and stage 1 through stage 4 chronic kidney disease, or unspecified chronic kidney disease; I50.9 Heart failure, unspecified; E87.1 Hypo-osmolality and hyponatremia; E78.5 Hyperlipidemia, unspecified; M79.89 Other specified soft tissue disorders; E10.65 Type 1 diabetes mellitus with hyperglycemia; Z79.4 Long term (current) use of insulin; I25.10 Atherosclerotic heart disease of native coronary artery without angina pectoris; G47.33 Obstructive sleep apnea (adult) (pediatric); F01.50 Vascular dementia, unspecified severity, without behavioral disturbance, psychotic disturbance, mood disturbance, and anxiety; H54.0 Blindness, both eyes; E03.9 Hypothyroidism, unspecified; K21.9 Gastro-esophageal reflux disease without esophagitis; I25.2 Old myocardial infarction
CPT/HCPCS: 70450; 73090; 73130; 80048; 81003; 82550; 82947; 85025; 93005; 99285; J1815